=== PATIENT | female | born 1935 | race Caucasian/White ===

== ENCOUNTER 2021-08-24 19:33 | Inpatient (IN) | payer MEDICARE, OTHER ==
[2021-08-24] MEDS ORDERED: Amiodarone 150 MG/3 ML VIAL ONE (19:37)
[2021-08-24] MEDS ORDERED: Diltiazem 125 MG/25 ML ONE (19:45)
[2021-08-24] MEDS ORDERED: Furosemide 40 MG/4 ML VIAL ONE (20:11)
[2021-08-24 20:18] LABS: #Eosinphils 0.1 thou/uL (0.0-0.7); #Lymphocytes 0.5 thou/uL (1.20-3.40); #Monocytes 0.1 thou/uL (0.11-0.59); %Eosinophils 1.3 % (0.0-10.0); %Lymphocytes 10.3 % (21.0-51.0); %Neutrophils 86.4 % (42.0-75.0); Hemoglobin 12.7 g/dL (12.0-16.0); Mean Corpuscular Hemoglobin 32.5 pg (27.0-31.0); Mean Corpuscular Volume 98.5 fL (78.0-98.0); Mean Platelet Volume 6.3 fL (7.4-10.4); Platelet Count 274 thou/uL (130-400); RBC Distribution Width 13.3 % (11.5-14.5); Red Blood Cell (RBC) Count 3.92 mill/uL (4.20-5.40); White Blood Cell (WBC) Count 4.7 thou/uL (4.8-10.8)
[2021-08-24 20:41] LABS: ALT (SGPT) 19 U/L (8-55); AST (SGOT) 23 U/L (5-34); Albumin 3.9 g/dL (3.4-4.8); Alkaline Phosphatase 47 U/L (40-110); Anion Gap 15 mmol/L (10-20); BUN (Urea Nitrogen) 34 mg/dL (9.8-20.1); Bilirubin, Total 1.1 mg/dL (0.2-1.2); Calc. Creatinine Clearance 0 mL/min (70-130); Calcium 9.3 mg/dL (7.8-10.44); Carbon Dioxide 23 mmol/L (23-31); Chloride 102 mmol/L (98-107); Globulin 3.8 g/dL (2.4-3.5); Glucose 90 mg/dL (83-110); Potassium 4.4 mmol/L (3.5-5.1); Protein, Total 7.7 g/dL (5.8-8.1); Sodium 136 mmol/L (136-145)
[2021-08-24 21:02] LABS: CKMB 2.7 ng/mL (0-6.6)
[2021-08-24] MEDS ORDERED: Enoxaparin Sodium 80 MG/0.8 ML SYRINGE ONE (22:06)
[2021-08-24] MEDS ORDERED: Digoxin 0.5 MG/2 ML AMP ONE (22:07)
[2021-08-24] MEDS ORDERED: Amiodarone 450 MG, Admixture Fee 1 EACH in Dextrose 5% in Water 250 ML IVPB SCH (22:30)
[2021-08-24] MEDS ORDERED: Diltiazem HCl 125 MG, Admixture Fee 1 EACH in Sodium Chloride 0.9% 100 ML IVPB SCH (22:45)
[2021-08-24 23:27] LABS: Troponin I 0.349 ng/mL (< 0.028)
[2021-08-24] MEDS ORDERED: Ondansetron PF 4 MG/2 ML Vial IVP PRN (23:27)
[2021-08-24] MEDS ORDERED: Acetaminophen 325 MG TAB PO PRN (23:27)
[2021-08-24] MEDS ORDERED: Ondansetron ODT 4 MG TAB PO PRN (23:27)
[2021-08-24] MEDS ORDERED: Acetaminophen 650 MG Suppository PR PRN (23:27)
[2021-08-25 00:03] LABS: SARS-CoV-2 NAA Rapid Test Not Detected (NotDetected)
[2021-08-25] MEDS ORDERED: cefTRIAXone\\ROCEPHIN 1 GM VIAL ONE (00:20)
[2021-08-25] MEDS: cefTRIAXone\\ROCEPHIN 1 GM in Sodium Chloride 0.9% 100 ML IVPB SCH (00:36)
[2021-08-25 02:10] LABS: Mean Corpuscular HGB CONC 33.5 g/dL (32.0-36.0); Mean Corpuscular Hemoglobin 32.6 pg (27.0-31.0); Mean Corpuscular Volume 97.4 fL (78.0-98.0); Mean Platelet Volume 6.4 fL (7.4-10.4); Platelet Count 217 thou/uL (130-400); RBC Distribution Width 13.1 % (11.5-14.5); Red Blood Cell (RBC) Count 3.38 mill/uL (4.20-5.40); White Blood Cell (WBC) Count 9.9 thou/uL (4.8-10.8)
[2021-08-25] MEDS ORDERED: Aspirin 325 MG TAB PO SCH (02:30)
[2021-08-25 02:35] LABS: Troponin I 0.437 ng/mL (< 0.028)
[2021-08-25] MEDS ORDERED: Aspirin 325 MG TAB ONE (02:37)
[2021-08-25 02:44] LABS: Band 49 % (5-11); Lymphocytes 3 % (21-51); MDiff Complete? YES; Metamyelocyte 1 % (0-0); Monocytes 3 % (0-10); Neutrophil 44 % (42-75); Reflex for Review?? YES
[2021-08-25] MEDS ORDERED: Diltiazem HCl 125 MG, Admixture Fee 1 EACH in Sodium Chloride 0.9% 100 ML IVPB SCH (03:00)
[2021-08-25 03:07] LABS: Anion Gap 17 mmol/L (10-20); BUN (Urea Nitrogen) 38 mg/dL (9.8-20.1); Calc. Creatinine Clearance 0 mL/min (70-130); Calcium 9.1 mg/dL (7.8-10.44); Carbon Dioxide 18 mmol/L (23-31); Chloride 104 mmol/L (98-107); Glucose 145 mg/dL (83-110); Potassium 3.9 mmol/L (3.5-5.1); Sodium 135 mmol/L (136-145)
[2021-08-25 06:08] VITALS: BMI 25.9
[2021-08-25] MEDS: Ferrous Sulfate 325 MG TAB PO SCH (08:58)
[2021-08-25] MEDS: Gabapentin 100 MG CAP PO SCH ×4 (08:59→20:35)
[2021-08-25] MEDS ORDERED: Rivaroxaban 15 MG TAB PO SCH (09:00)
[2021-08-25] MEDS ORDERED: Aspirin Chewable 81 MG TAB PO SCH (09:00)
[2021-08-25] MEDS ORDERED: Aspirin 81 mg Enteric Coated Tablet PO SCH (09:00)
[2021-08-25] MEDS: Enoxaparin Sodium 80 MG/0.8 ML SYRINGE SC SCH ×2 (09:02→20:36)
[2021-08-25] MEDS: Furosemide 40 MG/4 ML VIAL SLOW IVP SCH (09:03)
[2021-08-25] MEDS ORDERED: Dronedarone HCl 400 MG TAB PO SCH ×2 (09:45→17:00)
[2021-08-25] MEDS ORDERED: Spironolactone 25 MG TAB PO SCH (09:45)
[2021-08-25] MEDS ORDERED: Digoxin 0.5 MG/2 ML AMP SLOW IVP SCH ×2 (10:00→15:00)
[2021-08-25] MEDS: Empagliflozin 10 MG TAB PO SCH (11:46)
[2021-08-25] MEDS: methylPREDNISolone Sod Succ 40 MG VIAL IVP SCH (12:34)
[2021-08-25] MEDS: Lisinopril 2.5 MG TAB PO SCH (20:35)
[2021-08-25] MEDS: Atorvastatin Calcium 40 MG TAB PO SCH (20:36)
[2021-08-26] MEDS: cefTRIAXone\\ROCEPHIN 1 GM in Sodium Chloride 0.9% 100 ML IVPB SCH ×2 (01:37→23:59)
[2021-08-26] MEDS: guaiFENesin 200 MG TAB PO SCH ×3 (02:00→20:00)
[2021-08-26 05:20] LABS: Anion Gap 14 mmol/L (10-20); BUN (Urea Nitrogen) 47 mg/dL (9.8-20.1); Calc. Creatinine Clearance 34 mL/min (70-130); Calcium 9.1 mg/dL (7.8-10.44); Carbon Dioxide 26 mmol/L (23-31); Chloride 101 mmol/L (98-107); Glucose 132 mg/dL (83-110); Potassium 3.8 mmol/L (3.5-5.1); Sodium 137 mmol/L (136-145)
[2021-08-26] MEDS: Aspirin 81 mg Enteric Coated Tablet PO SCH (09:49)
[2021-08-26] MEDS: Gabapentin 100 MG CAP PO SCH ×3 (09:49→20:00)
[2021-08-26] MEDS: Spironolactone 25 MG TAB PO SCH (09:50)
[2021-08-26] MEDS: Ferrous Sulfate 325 MG TAB PO SCH (09:50)
[2021-08-26] MEDS: Furosemide 40 MG/4 ML VIAL SLOW IVP SCH (09:51)
[2021-08-26] MEDS: Digoxin 0.5 MG/2 ML AMP SLOW IVP SCH (09:52)
[2021-08-26] MEDS: methylPREDNISolone Sod Succ 40 MG VIAL IVP SCH (09:52)
[2021-08-26] MEDS: Empagliflozin 10 MG TAB PO SCH (12:45)
[2021-08-26] MEDS: Mometasone 200 MCG/Formoterol 5 MCG 120 PUFF INHALER INH SCH (18:49)
[2021-08-26] MEDS: Atorvastatin Calcium 40 MG TAB PO SCH (20:00)
[2021-08-26] MEDS: Lisinopril 2.5 MG TAB PO SCH (20:00)
[2021-08-26] MEDS ORDERED: Enoxaparin Sodium 80 MG/0.8 ML SYRINGE SC SCH (21:00)
[2021-08-27] MEDS: guaiFENesin 200 MG TAB PO SCH ×4 (02:00→20:35)
[2021-08-27 05:24] LABS: #Lymphocytes 0.6 thou/uL (1.20-3.40); #Monocytes 0.5 thou/uL (0.11-0.59); #Neutrophils 7.8 thou/uL (1.40-6.50); %Basophils 0.1 % (0.0-1.0); %Monocytes 5.6 % (0.0-10.0); %Neutrophils 87.3 % (42.0-75.0); Hemoglobin 10.3 g/dL (12.0-16.0); Mean Corpuscular HGB CONC 32.7 g/dL (32.0-36.0); Mean Corpuscular Hemoglobin 32.8 pg (27.0-31.0); Mean Platelet Volume 6.8 fL (7.4-10.4); Platelet Count 244 thou/uL (130-400); Red Blood Cell (RBC) Count 3.15 mill/uL (4.20-5.40); White Blood Cell (WBC) Count 8.9 thou/uL (4.8-10.8)
[2021-08-27 05:46] LABS: Anion Gap 12 mmol/L (10-20); BUN (Urea Nitrogen) 53 mg/dL (9.8-20.1); Calc. Creatinine Clearance 35 mL/min (70-130); Calcium 9.3 mg/dL (7.8-10.44); Carbon Dioxide 29 mmol/L (23-31); Chloride 102 mmol/L (98-107); Glucose 135 mg/dL (83-110); Potassium 4.2 mmol/L (3.5-5.1); Sodium 139 mmol/L (136-145)
[2021-08-27] MEDS: Mometasone 200 MCG/Formoterol 5 MCG 120 PUFF INHALER INH SCH ×2 (06:06→19:00)
[2021-08-27 06:11] LABS: Digoxin 1.75 ng/mL (0.8-2.0)
[2021-08-27] MEDS ORDERED: ALPRAZolam 0.25 MG TAB PO PRN (07:33)
[2021-08-27] MEDS: Ferrous Sulfate 325 MG TAB PO SCH (09:09)
[2021-08-27] MEDS: predniSONE 20 MG TAB PO SCH (09:09)
[2021-08-27] MEDS: Spironolactone 25 MG TAB PO SCH (09:10)
[2021-08-27] MEDS: Aspirin 81 mg Enteric Coated Tablet PO SCH (09:10)
[2021-08-27] MEDS: Digoxin 0.5 MG/2 ML AMP SLOW IVP SCH (09:11)
[2021-08-27] MEDS: Furosemide 40 MG/4 ML VIAL SLOW IVP SCH (09:12)
[2021-08-27] MEDS: Gabapentin 100 MG CAP PO SCH ×3 (09:13→20:36)
[2021-08-27] MEDS: Empagliflozin 10 MG TAB PO SCH (12:11)
[2021-08-27] MEDS: Rivaroxaban 15 MG TAB PO SCH (17:30)
[2021-08-27] MEDS: Atorvastatin Calcium 40 MG TAB PO SCH (20:36)
[2021-08-28] MEDS: guaiFENesin 200 MG TAB PO SCH ×5 (01:12→21:08)
[2021-08-28] MEDS: cefTRIAXone\\ROCEPHIN 1 GM in Sodium Chloride 0.9% 100 ML IVPB SCH (01:12)
[2021-08-28] MEDS ORDERED: hydrOXYzine 10 MG TAB PO SCH (01:48)
[2021-08-28] MEDS: Melatonin 3 MG TAB PO PRN (02:06)
[2021-08-28 05:16] LABS: Anion Gap 12 mmol/L (10-20); BUN (Urea Nitrogen) 49 mg/dL (9.8-20.1); Calc. Creatinine Clearance 36 mL/min (70-130); Calcium 9.1 mg/dL (7.8-10.44); Carbon Dioxide 31 mmol/L (23-31); Chloride 102 mmol/L (98-107); Glucose 143 mg/dL (83-110); Potassium 3.8 mmol/L (3.5-5.1); Sodium 141 mmol/L (136-145)
[2021-08-28] MEDS: Mometasone 200 MCG/Formoterol 5 MCG 120 PUFF INHALER INH SCH ×2 (07:35→18:20)
[2021-08-28] MEDS ORDERED: Potassium Chloride 20 MEQ TAB PO SCH (09:00)
[2021-08-28] MEDS: predniSONE 20 MG TAB PO SCH (09:16)
[2021-08-28] MEDS: Ferrous Sulfate 325 MG TAB PO SCH (09:17)
[2021-08-28] MEDS: Aspirin 81 mg Enteric Coated Tablet PO SCH (09:17)
[2021-08-28] MEDS: Famotidine 20 MG TAB PO SCH (09:17)
[2021-08-28] MEDS: Spironolactone 25 MG TAB PO SCH (09:18)
[2021-08-28] MEDS: Furosemide 40 MG/4 ML VIAL SLOW IVP SCH (09:18)
[2021-08-28] MEDS: Gabapentin 100 MG CAP PO SCH ×3 (09:18→21:06)
[2021-08-28] MEDS: Empagliflozin 10 MG TAB PO SCH (11:33)
[2021-08-28] MEDS: BIOTENE MOUTH SPRAY 44.3 ML PO PRN ×2 (16:21→18:35)
[2021-08-28] MEDS: Rivaroxaban 15 MG TAB PO SCH (17:50)
[2021-08-28] MEDS: Atorvastatin Calcium 40 MG TAB PO SCH (21:08)
[2021-08-29 04:59] LABS: Anion Gap 14 mmol/L (10-20); BUN (Urea Nitrogen) 38 mg/dL (9.8-20.1); Calc. Creatinine Clearance 45 mL/min (70-130); Calcium 9.3 mg/dL (7.8-10.44); Carbon Dioxide 32 mmol/L (23-31); Chloride 100 mmol/L (98-107); Glucose 89 mg/dL (83-110); Potassium 4.5 mmol/L (3.5-5.1); Sodium 141 mmol/L (136-145)
[2021-08-29 05:01] LABS: Digoxin 1.32 ng/mL (0.8-2.0)
[2021-08-29] MEDS: Mometasone 200 MCG/Formoterol 5 MCG 120 PUFF INHALER INH SCH ×2 (07:33→18:35)
[2021-08-29] MEDS: guaiFENesin 200 MG TAB PO SCH ×3 (09:40→20:37)
[2021-08-29] MEDS: predniSONE 20 MG TAB PO SCH (09:41)
[2021-08-29] MEDS: Digoxin 0.125 MG TAB PO SCH (09:41)
[2021-08-29] MEDS: Famotidine 20 MG TAB PO SCH (09:42)
[2021-08-29] MEDS: Furosemide 40 MG TAB PO SCH (09:42)
[2021-08-29] MEDS: Aspirin 81 mg Enteric Coated Tablet PO SCH (09:42)
[2021-08-29] MEDS: Ferrous Sulfate 325 MG TAB PO SCH (09:42)
[2021-08-29] MEDS: Gabapentin 100 MG CAP PO SCH ×3 (09:42→20:36)
[2021-08-29] MEDS: Spironolactone 25 MG TAB PO SCH (09:42)
[2021-08-29] MEDS ORDERED: predniSONE 50 MG TAB ONE (10:04)
[2021-08-29] MEDS: BIOTENE MOUTH SPRAY 44.3 ML PO PRN (10:10)
[2021-08-29] MEDS: Empagliflozin 10 MG TAB PO SCH (13:06)
[2021-08-29] MEDS: Rivaroxaban 15 MG TAB PO SCH (18:28)
[2021-08-29] MEDS: Atorvastatin Calcium 40 MG TAB PO SCH (20:37)
[2021-08-30] MEDS: guaiFENesin 200 MG TAB PO SCH ×3 (02:46→13:48)
[2021-08-30] MEDS: Melatonin 3 MG TAB PO PRN (02:46)
[2021-08-30] MEDS: Mometasone 200 MCG/Formoterol 5 MCG 120 PUFF INHALER INH SCH (07:25)
[2021-08-30] MEDS: BIOTENE MOUTH SPRAY 44.3 ML PO PRN (10:06)
[2021-08-30] MEDS: Spironolactone 25 MG TAB PO SCH (10:08)
[2021-08-30] MEDS: Ferrous Sulfate 325 MG TAB PO SCH (10:08)
[2021-08-30] MEDS: Aspirin 81 mg Enteric Coated Tablet PO SCH (10:08)
[2021-08-30] MEDS: Famotidine 20 MG TAB PO SCH (10:09)
[2021-08-30] MEDS: Digoxin 0.125 MG TAB PO SCH (10:09)
[2021-08-30] MEDS: predniSONE 20 MG TAB PO SCH (10:10)
[2021-08-30] MEDS: Furosemide 40 MG TAB PO SCH (10:13)
[2021-08-30] MEDS: Gabapentin 100 MG CAP PO SCH (10:13)
[2021-08-30 12:05] VITALS: BP 132/73; TEMP 98.4
[2021-08-30] MEDS: Empagliflozin 10 MG TAB PO SCH (13:35)
== END 2021-08-30 14:24 | disposition home health service (06) | DRG 280 ==
LOC: ERS 19:33 → ERHOLD 22:02 → 2NO 08-25 05:46
PROVIDERS: ADMIT Student in an Organized Health Care Education/Training Program; ATTEND Family Medicine
DX: I13.0 Hypertensive heart and chronic kidney disease with heart failure and stage 1 through stage 4 chronic kidney disease, or unspecified chronic kidney disease (principal); I21.A1 Myocardial infarction type 2; J96.01 Acute respiratory failure with hypoxia; I50.33 Acute on chronic diastolic (congestive) heart failure; I48.11 Longstanding persistent atrial fibrillation; J44.1 Chronic obstructive pulmonary disease with (acute) exacerbation; N39.0 Urinary tract infection, site not specified; Z20.822 Contact with and (suspected) exposure to COVID-19; E78.5 Hyperlipidemia, unspecified; E78.00 Pure hypercholesterolemia, unspecified; I25.10 Atherosclerotic heart disease of native coronary artery without angina pectoris; N18.30 Chronic kidney disease, stage 3 unspecified; Z99.89 Dependence on other enabling machines and devices; Z79.899 Other long term (current) drug therapy; Z79.82 Long term (current) use of aspirin; Z79.01 Long term (current) use of anticoagulants; Z79.51 Long term (current) use of inhaled steroids
CPT/HCPCS: 36415; 36416; 71045; 80048; 80053; 80162; 82553; 83605; 83880; 84484; 85025; 85060; 85652; 86140; 93005; 93306; 93798; 94640; 94660; 97139; J0282; J0696; J1160; J1650; J1940; J2920; J3490; J7512; J7620; U0002

== ENCOUNTER 2024-02-08 14:04 | Outpatient (CLI) | payer MEDICARE, OTHER | END 2024-02-08 14:05 | disposition home or self-care (01) | LOC: RAD 14:04 | PROVIDERS: ATTEND Internal Medicine | DX: J44.9 Chronic obstructive pulmonary disease, unspecified (principal) | CPT/HCPCS: 71046 ==

== ENCOUNTER 2024-03-18 18:13 | Inpatient (IN) | payer MEDICARE, OTHER ==
[2024-03-18] MEDS ORDERED: Ondansetron PF 4 MG/2 ML Vial ONE (18:51)
[2024-03-18 19:16] LABS: #Basophils Less than 0.03 10x3/uL (0.0-0.2); #Eosinphils Less than 0.03 10x3/uL (0.0-0.7); %Lymphocytes 2.8 % (21.0-51.0); %Monocytes 2.2 % (0.0-10.0); %Neutrophils 94.4 % (42.0-75.0); Hematocrit 35.3 % (36.0-47.0); Mean Corpuscular Hemoglobin 31.2 pg (27.0-31.0); Mean Corpuscular Volume 91.7 fL (78.0-98.0); Mean Platelet Volume 8.8 fL (7.4-10.4); Platelet Count 239 10x3/uL (130-400); RBC Distribution Width 13.6 % (11.5-14.5); Red Blood Cell (RBC) Count 3.85 mill/uL (4.20-5.40)
[2024-03-18 19:38] LABS: ALT (SGPT) 19 U/L (8-55); AST (SGOT) 25 U/L (5-34); Albumin 3.9 g/dL (3.4-4.8); Alkaline Phosphatase 42 U/L (40-110); Anion Gap 14 mmol/L (10-20); BUN (Urea Nitrogen) 30 mg/dL (9.8-20.1); Bilirubin, Total 0.8 mg/dL (0.2-1.2); Calc. Creatinine Clearance 0 mL/min (70-130); Calcium 9.4 mg/dL (7.8-10.44); Carbon Dioxide 22 mmol/L (23-31); Chloride 97 mmol/L (98-107); Estimated GFR 51; Globulin 4.3 g/dL (2.4-3.5); Glucose 130 mg/dL (83-110); Protein, Total 8.2 g/dL (5.8-8.1); Sodium 128 mmol/L (136-145)
[2024-03-18 19:42] LABS: Troponin I 0.051 ng/mL (< 0.028)
[2024-03-18] MEDS ORDERED: cefTRIAXone (ROCEPHIN) 2 GM VIAL ONE ×2 (20:33→21:59)
[2024-03-18] MEDS ORDERED: Sodium Chloride 0.9% 100 ML ONE ×2 (20:34→21:59)
[2024-03-18 23:24] VITALS: BMI 21.4
[2024-03-19] MEDS: Furosemide 100 MG (10 mL) VIAL SLOW IVP SCH (00:29)
[2024-03-19] MEDS: cefTRIAXone\\ROCEPHIN 1 GM in Sodium Chloride 0.9% 100 ML IVPB SCH (00:30)
[2024-03-19] MEDS: Azithromycin 500 MG in Sodium Chloride 0.9% 250 ML 250 ML IVPB SCH (01:18)
[2024-03-19 02:22] LABS: Troponin I 0.052 ng/mL (< 0.028)
[2024-03-19 05:35] LABS: #Basophils Less than 0.03 10x3/uL (0.0-0.2); #Eosinphils Less than 0.03 10x3/uL (0.0-0.7); %Basophils 0.1 % (0.0-1.0); %Lymphocytes 18.2 % (21.0-51.0); %Monocytes 11.2 % (0.0-10.0); %Neutrophils 70.2 % (42.0-75.0); Hematocrit 36.2 % (36.0-47.0); Hemoglobin 12.1 g/dL (12.0-16.0); Mean Corpuscular HGB CONC 33.4 g/dL (32.0-36.0); Mean Corpuscular Hemoglobin 31.1 pg (27.0-31.0); Mean Corpuscular Volume 93.1 fL (78.0-98.0); Mean Platelet Volume 8.9 fL (7.4-10.4); Platelet Count 248 10x3/uL (130-400); RBC Distribution Width 13.7 % (11.5-14.5); Red Blood Cell (RBC) Count 3.89 mill/uL (4.20-5.40)
[2024-03-19 06:13] LABS: Anion Gap 13 mmol/L (10-20); BUN (Urea Nitrogen) 27 mg/dL (9.8-20.1); Calc. Creatinine Clearance 36 mL/min (70-130); Calcium 9.4 mg/dL (7.8-10.44); Carbon Dioxide 28 mmol/L (23-31); Chloride 97 mmol/L (98-107); Estimated GFR 58; Glucose 102 mg/dL (83-110); Potassium 4.3 mmol/L (3.5-5.1); Sodium 134 mmol/L (136-145)
[2024-03-19] MEDS: Budesonide 0.5 MG/2 ML NEB INH SCH (07:04)
[2024-03-19] MEDS ORDERED: Ondansetron PF 4 MG/2 ML Vial IVP PRN (08:28)
[2024-03-19] MEDS ORDERED: Fluticasone Propionate Nasal Spray 16 gm Bottle NASAL PRN (08:29)
[2024-03-19] MEDS ORDERED: Albuterol 2.5 MG (3 mL) NEB NEB PRN (08:29)
[2024-03-19] MEDS ORDERED: Enoxaparin 40 MG (0.4 mL) SYRINGE SC SCH (09:00)
[2024-03-19] MEDS: Aspirin Chewable 81 MG TAB PO SCH (09:10)
[2024-03-19] MEDS: Spironolactone 25 MG TAB PO SCH ×3 (09:10→09:18)
[2024-03-19] MEDS: Digoxin 0.125 MG TAB PO SCH (09:10)
[2024-03-19] MEDS: Empagliflozin 10 MG TAB PO SCH (09:12)
[2024-03-19] MEDS: dilTIAZem CD 240 MG CAP PO SCH (09:12)
[2024-03-19] MEDS: Ezetimibe 10 MG TAB PO SCH (09:13)
[2024-03-19] MEDS: Ferrous Sulfate 325 MG TAB PO SCH (09:13)
[2024-03-19] MEDS: Furosemide 20 MG TAB PO SCH (09:14)
[2024-03-19] MEDS: Gabapentin 100 MG CAP PO SCH (09:15)
[2024-03-19] MEDS: Rivaroxaban 15 MG TAB PO SCH (09:16)
[2024-03-19] MEDS: Pantoprazole DR 40 MG TAB PO SCH (09:16)
[2024-03-19] MEDS: Senokot S 8.6-50 MG TAB PO SCH (09:17)
[2024-03-19] MEDS: Mometasone 200 MCG/Formoterol 5 MCG 120 PUFF INHALER INH SCH (19:45)
[2024-03-19] MEDS: Atorvastatin Calcium 40 MG TAB PO SCH (20:18)
[2024-03-19] MEDS: Melatonin 3 MG TAB PO SCH (22:57)
[2024-03-20] MEDS: Acetaminophen 325 MG TAB PO PRN (05:45)
[2024-03-20] MEDS: Benzonatate 100 MG CAP PO PRN (05:46)
[2024-03-20] MEDS: HYDROmorphone 0.5 MG/0.5 ML SYRINGE SLOW IVP SCH (09:05)
[2024-03-20] MEDS: Spironolactone 25 MG TAB PO SCH (09:09)
[2024-03-20] MEDS ORDERED: Ipratropium/Albuterol 3 ML NEB NEB PRN (10:36)
[2024-03-20] MEDS: Lidocaine 4% Patch TD SCH ×2 (12:04→13:16)
[2024-03-20] MEDS: Melatonin 3 MG TAB PO SCH (21:38)
[2024-03-20] MEDS: Transdermal Patch Removal TOP SCH (22:26)
[2024-03-20] MEDS: traMADol HCl 50 MG TAB PO PRN (23:44)
[2024-03-21] MEDS: Famotidine 20 MG TAB PO PRN (12:17)
[2024-03-21] MEDS: Fluticasone Propionate Nasal Spray 16 gm Bottle NASAL SCH (15:11)
[2024-03-22 05:42] LABS: #Basophils 0.04 10x3/uL (0.0-0.2); %Basophils 0.3 % (0.0-1.0); %Eosinophils 4.8 % (0.0-10.0); %Lymphocytes 17.8 % (21.0-51.0); %Neutrophils 69.8 % (42.0-75.0); Hematocrit 37.9 % (36.0-47.0); Hemoglobin 12.7 g/dL (12.0-16.0); Mean Corpuscular HGB CONC 33.5 g/dL (32.0-36.0); Mean Corpuscular Hemoglobin 31.8 pg (27.0-31.0); Mean Corpuscular Volume 94.8 fL (78.0-98.0); Mean Platelet Volume 9.2 fL (7.4-10.4); Platelet Count 235 10x3/uL (130-400); RBC Distribution Width 13.6 % (11.5-14.5)
[2024-03-22 06:14] LABS: Anion Gap 12 mmol/L (10-20); BUN (Urea Nitrogen) 33 mg/dL (9.8-20.1); Calc. Creatinine Clearance 38 mL/min (70-130); Calcium 8.9 mg/dL (7.8-10.44); Carbon Dioxide 31 mmol/L (23-31); Chloride 99 mmol/L (98-107); Estimated GFR 61; Glucose 104 mg/dL (83-110); Potassium 3.9 mmol/L (3.5-5.1); Sodium 138 mmol/L (136-145)
[2024-03-22] MEDS: Fluticasone Propionate Nasal Spray 16 gm Bottle NASAL SCH (09:12)
[2024-03-22 11:19] VITALS: BP 129/60; TEMP 97.8
== END 2024-03-22 15:35 | disposition home health service (06) | DRG 178 ==
LOC: ERS 18:13 → 2NO 21:08 → UNDODISIN 03-22 14:50
PROVIDERS: ADMIT Internal Medicine; ATTEND Family Medicine
DX: J15.8 Pneumonia due to other specified bacteria (principal); E87.1 Hypo-osmolality and hyponatremia; I50.32 Chronic diastolic (congestive) heart failure; I48.20 Chronic atrial fibrillation, unspecified; J96.11 Chronic respiratory failure with hypoxia; I11.0 Hypertensive heart disease with heart failure; I25.10 Atherosclerotic heart disease of native coronary artery without angina pectoris; Z79.01 Long term (current) use of anticoagulants; J44.9 Chronic obstructive pulmonary disease, unspecified; Z79.899 Other long term (current) drug therapy; Z95.0 Presence of cardiac pacemaker; Z79.82 Long term (current) use of aspirin; Z79.51 Long term (current) use of inhaled steroids; Z95.5 Presence of coronary angioplasty implant and graft; R53.1 Weakness
CPT/HCPCS: 36415; 71045; 80048; 80053; 83735; 83880; 84484; 85025; 87040; 87081; 93005; 93306; 94640; 96374; 96375; J0456; J0696; J1170; J1940; J2405; J7050; J7626